=== PATIENT | male | born 1975 | race Caucasian/White ===

== ENCOUNTER → 2017-12-18 | Outpatient (CLI) | payer OTHER ==
--- NOTE | 2017-12-18 16:14 | Diagnostic Imaging Report ---
TECHNIQUE: Magnetic resonance imaging of the LEFT foot was performed WITHOUT injected contrast. HISTORY: Left foot pain COMPARISON: None available. DISCUSSION: Bone: No focal or infiltrative bone marrow replacing abnormality. No acute fracture or osteonecrosis. Joints: No focal cartilage defect. Soft Tissues: Mild fascial edema adjacent to the lateral cord of the plantar fascia best seen on sagittal image 9 Mild Achilles tendinosis. IMPRESSION: Mild plantar fasciitis of the lateral cord Signed by: Dr. Herberth French M.D. on 12/18/2017 4:11 PM
== END ==
LOC: MRI 14:49
PROVIDERS: ATTEND Podiatrist Foot & Ankle Surgery
DX: M72.2 Plantar fascial fibromatosis (principal)